=== PATIENT | male | born 1975 | race Hispanic/Latino ===

== ENCOUNTER 2021-02-28 09:06 | Emergency (ER) | payer BC ==
[~2021-02-28] VITALS: Ht 170.2 cm; Wt 99.8 kg
[2021-02-28] MEDS ORDERED: CASIRIVIMAB/IMDEVIMAB 10 ML in SODIUM CHLORIDE 0.9% 100 ML IV ONE (09:30)
== END 2021-02-28 10:31 | disposition home or self-care (01) ==
LOC: ER 09:15
DX: R50.9 Fever, unspecified (principal); R05 Cough; U07.1 COVID-19
CPT/HCPCS: 99282